=== PATIENT | male | born 2000 | race Caucasian/White ===

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

== ENCOUNTER → 2019-04-11 | Outpatient (CLI) | payer OTHER ==
--- NOTE | 2019-04-11 19:04 | MR ---
EXAMINATION TYPE: MR knee LT wo con DATE OF EXAM: 04/11/2019 EXAMINATION TYPE: MR knee LT wo con DATE OF EXAM: 04/11/2019 COMPARISON: 02/15/2016 HISTORY: Lt knee pain x 6 wks, hx injury 3 yrs ago TECHNIQUE: Multiplanar, multisequence imaging of the left knee is performed without IV contrast. FINDINGS: MEDIAL MENISCUS: Anterior and posterior horns are intact without tear. LATERAL MENISCUS: There is increased linear signal communicating with the superior articular surface of the anterior horn lateral meniscus. Radial tear near the junction of the anterior and posterior ho rns may be present. Small mild linear signal is also evident within the posterior horn lateral menisc us suggestive for a horizontal tear. CRUCIATE LIGAMENTS: Posterior cruciate ligament is intact. The anterior cruciate ligament repair appe ars intact on these images. Correlate with surgical history for a subsequent ACL repair over the inte rval. COLLATERAL LIGAMENTS: The medial collateral ligament and lateral collateral ligament complex are inta ct and unremarkable. EXTENSOR MECHANISM: Visualized quadriceps and patellar tendons are intact. EFFUSION: No significant suprapatellar joint effusion. POPLITEAL CYST: No popliteal/abdullahi cyst. TRICOMPARTMENT SPACES: Preserved CARTILAGE: Appears intact BONE MARROW SIGNAL: There is some mild increased signal on T2-weighted sequences within the lateral f emoral condyle adjacent to the fibular head. Mild contusion may be present. OTHER: No additional significant abnormality is appreciated. IMPRESSION: 1. There appears to be an ACL repair between the previous examination and the current study. Thick AC L repair signal appears to be intact. Correlate with the patient's history. 2. Horizontal tears of the anterior and posterior lateral menisci. A radial tear may also be present in the mid lateral meniscus. 3. Suspected mild contusion of the lateral tibial plateau near the fibular head.
== END | disposition home or self-care (01) ==
LOC: RADMRIMAIN 16:32
PROVIDERS: ATTEND Orthopaedic Surgery
DX: S83.282A Other tear of lateral meniscus, current injury, left knee, initial encounter (principal); M35.7 Hypermobility syndrome; Z98.890 Other specified postprocedural states

== ENCOUNTER 2022-04-13 13:51 | Emergency (ER) | payer OTHER ==
--- NOTE | 2022-04-13 18:36 | CT ---
EXAMINATION TYPE: CT abdomen pelvis w con CT DLP: 610 mGycm, Automated exposure control for dose reduction was used. DATE OF EXAM: 04/13/2022 5:55 PM COMPARISON: None CLINICAL INDICATION:Male, 22 years old with history of RLQ pain x 1 week with diarrhea sent by PCP; TECHNIQUE: Standard CT of the abdomen and pelvis with IV contrast. Coronal and sagittal reformats w ere performed. FINDINGS: LOWER CHEST: Unremarkable ABDOMEN LIVER: Unremarkable GALLBLADDER AND BILE DUCTS: Unremarkable. PANCREAS: Unremarkable. SPLEEN: Unremarkable. ADRENAL GLANDS: Unremarkable. KIDNEYS AND URETERS: No evidence of hydronephrosis or renal calculus. The ureters are unremarkable. PELVIS BLADDER: Unremarkable REPRODUCTIVE: Unremarkable. ABDOMEN & PELVIS STOMACH AND BOWEL: The appendix is dilated and filled with feces. There is mucosal thickening of the sanchez appendicolith is present. Fat stranding seen around the appendix. There is multiple lymph nodes within the mesentery which are enlarged. Findings are best appreciated on series 202 image 33. PERITONEUM: No evidence of pneumoperitoneum or free fluid. VASCULATURE: No evidence of aortic aneurysm. MUSCULOSKELETAL: No acute osseous abnormalities. LYMPH NODES: Multiple enlarged right lower quadrant lymph nodes are present measuring up to 13.3 mm. SOFT TISSUE/ABDOMINAL WALL: Unremarkable IMPRESSION: Appendicitis with distended appendix filled with feces and at least one hypodensity appendicolith. Th ere are multiple enlarged mesenteric lymph nodes. Which are likely reactive. No evidence of pneumoper itoneum or organizing fluid collection.
== END 2022-04-13 22:01 | disposition left against medical advice (07) ==
LOC: EC 13:51
DX: Z53.21 Procedure and treatment not carried out due to patient leaving prior to being seen by health care provider (principal)
CPT/HCPCS: 74177